=== PATIENT | male | born 1970 | race Caucasian/White ===

== ENCOUNTER 2024-02-05 15:35 | Inpatient (IN) ==
[2024-02-05] MEDS: morphine 2 MG/ML VIAL IV ONE (16:08)
[2024-02-05] MEDS: HYDROcodone/APAP 5/325MG TABLET PO ONE ×2 (16:17→18:33)
[2024-02-05 16:52] LABS: Basophils # (Auto) 0.03 K/mcL (0.00-0.30); Basophils % (Auto) 0.7 % (0.0-2.0); Eosinophils # (Auto) 0.11 K/mcL (0.00-0.70); Eosinophils % (Auto) 2.5 % (0.0-7.0); Hematocrit 30.1 % (40.1-51.0); Hemoglobin 10.1 g/dL (13.7-17.5); Lymphocytes # (Auto) 0.69 K/mcL (1.50-4.80); Lymphocytes % (Auto) 15.5 % (15.5-49.0); Mean Cell Volume 96.8 fL (80.0-100.0); Mean Corpuscular HGB Conc 33.6 g/dL (31.0-36.0); Monocytes # (Auto) 0.47 K/mcL (0.10-0.90); Monocytes % (Auto) 10.6 % (1.0-12.0); Platelet Count 303 K/mcL (140-440); RBC 3.11 M/mcL (4.63-6.08); Red Cell Distribution Width 12.6 % (11.5-14.5); WBC 4.4 K/mcL (4.5-11.0)
[2024-02-05 17:14] LABS: ALT/SGPT 21 U/L (<40); AST/SGOT 15 U/L (<40); Albumin 3.7 gm/dL (3.2-5.2); Albumin/Globulin Ratio 1.7 (1.0-2.3); Alkaline Phosphatase 107 U/L (39-117); Bilirubin,Total < 0.2 mg/dL (0.1-1.0); Blood Urea Nitrogen 28 mg/dL (6-20); Calcium 8.6 mg/dL (8.6-10.4); Carbon Dioxide 25 mmol/L (22-30); Chloride 97 mmol/L (96-108); Globulin 2.2 gm/dL (2.2-3.7); Glomerular Filtration Rate 101; Glucose 503 mg/dL (70-105); Potassium 4.4 mmol/L (3.3-5.1); Sodium 133 mmol/L (133-145)
[2024-02-05 17:22] LABS: Partial Thromboplastin Time 30.3 sec (20.0-37.0)
[2024-02-05] MEDS ORDERED: INSULIN REGULAR, HUMAN 50 UNIT in 0.9 % SODIUM CHLORIDE 99.5 ML IV SCH (17:30)
[2024-02-05] MEDS: INSULIN REGULAR, HUMAN 1 UNIT/0.01 ML UNIT SQ ONE (17:31)
[2024-02-05] MEDS: 0.9 % SODIUM CHLORIDE 1,000 ML IV ONE (17:31)
[2024-02-05 19:00] LABS: ABG Methemoglobin 0.3 % (0.4-1.5); Total Hemoglobin 10.3 gm/Dl (13.5-16.5); VBG Base Excess -2 (-2-3); VBG HCO3 23.2 mmol/L (24.0-28.0); VBG Oxygen Saturation 62.6 % (40.0-70.0); VBG PCO2 39.2 mmHg (41.0-51.0); VBG PH 7.39 U (7.32-7.42); VBG PO2 34.4 mmHg (25.0-40.0); VBG Total CO2 24.4 mmol/L (25.0-29.0)
[2024-02-05] MEDS: LACTATED RINGERS 1,000 ML IV SCH (20:02)
[2024-02-05] MEDS ORDERED: NICOTINE POLACRILEX 2 MG GUM CHEW/PARK PRN (21:16)
[2024-02-05] MEDS ORDERED: ACETAMINOPHEN 325 MG TABLET PO PRN (21:29)
[2024-02-05] MEDS ORDERED: SENNOSIDES 1 TABLET PO PRN (21:29)
[2024-02-05] MEDS ORDERED: ONDANSETRON 4 MG/2 ML VIAL IV PRN (21:29)
[2024-02-05] MEDS ORDERED: DEXTROSE 31 GM ORAL.SUSP PO PRN (21:29)
[2024-02-05] MEDS ORDERED: DEXTROSE 50% 50 ML VIAL IV PRN (21:29)
[2024-02-05] MEDS ORDERED: IBUPROFEN 400 MG TABLET PO PRN (21:34)
[2024-02-05] MEDS: NICOTINE 21 MG PATCH TOPICAL SCH (21:58)
[2024-02-05] MEDS: oxyCODONE IR 5 MG TABLET PO PRN (21:59)
[2024-02-05] MEDS: 0.9 % SODIUM CHLORIDE 10 ML SYRINGE IV SCH (21:59)
[2024-02-05] MEDS: INSULIN LISPRO 1 UNIT/0.01 ML UNIT SQ SCH (22:08)
[2024-02-05] MEDS: INSULIN GLARGINE, HUMAN 1 UNIT/0.01 ML SQ SCH (22:09)
[2024-02-05] MEDS: ENOXAPARIN 40 MG/0.4 ML SYRINGE SQ SCH (22:11)
[2024-02-06] MEDS: ACETAMINOPHEN 500 MG TABLET PO PRN (02:33)
[2024-02-06 06:50] LABS: Basophils # (Auto) 0.03 K/mcL (0.00-0.30); Basophils % (Auto) 0.6 % (0.0-2.0); Eosinophils # (Auto) 0.12 K/mcL (0.00-0.70); Eosinophils % (Auto) 2.2 % (0.0-7.0); Hematocrit 27.9 % (40.1-51.0); Lymphocytes # (Auto) 0.95 K/mcL (1.50-4.80); Lymphocytes % (Auto) 17.7 % (15.5-49.0); Mean Cell Volume 100.4 fL (80.0-100.0); Mean Corpuscular HGB Conc 32.3 g/dL (31.0-36.0); Monocytes # (Auto) 0.58 K/mcL (0.10-0.90); Monocytes % (Auto) 10.8 % (1.0-12.0); Neutrophils % (Auto) 68.3 % (38.0-78.0); Platelet Count 255 K/mcL (140-440); RBC 2.78 M/mcL (4.63-6.08); Red Cell Distribution Width 12.8 % (11.5-14.5); WBC 5.4 K/mcL (4.5-11.0)
[2024-02-06 07:11] LABS: ALT/SGPT 15 U/L (<40); AST/SGOT 13 U/L (<40); Albumin 3.1 gm/dL (3.2-5.2); Albumin/Globulin Ratio 1.7 (1.0-2.3); Alkaline Phosphatase 82 U/L (39-117); Bilirubin,Direct < 0.2 mg/dL (0-0.3); Bilirubin,Total < 0.2 mg/dL (0.1-1.0); Blood Urea Nitrogen 15 mg/dL (6-20); Calcium 7.8 mg/dL (8.6-10.4); Carbon Dioxide 24 mmol/L (22-30); Chloride 106 mmol/L (96-108); Globulin 1.8 gm/dL (2.2-3.7); Glomerular Filtration Rate 123; Glucose 169 mg/dL (70-105); Lactate Dehydrogenase 203 U/L (135-225); Phosphorous 3.7 mg/dL (2.5-4.5); Sodium 138 mmol/L (133-145); Triglycerides 69 mg/dL (<150); Uric Acid 2.7 mg/dL (2.5-8.0)
[2024-02-06] MEDS: INSULIN LISPRO 1 UNIT/0.01 ML UNIT SQ SCH (07:26)
[2024-02-06] MEDS ORDERED: PROPOFOL 200 MG/20 ML VIAL IV ONE (07:49)
[2024-02-06] MEDS ORDERED: LIDOCAINE 2% PF 5 ML VIAL ONE (07:49)
[2024-02-06] MEDS ORDERED: KETAMINE 50 MG/ML Syringe IV ONE (07:49)
[2024-02-06] MEDS ORDERED: ONDANSETRON 4 MG/2 ML VIAL ONE (07:49)
[2024-02-06] MEDS ORDERED: MAGNESIUM SULFATE 2 GM/50 ML BAG IV ONE (07:49)
[2024-02-06] MEDS ORDERED: DEXAMETHASONE 10 MG/ML VIAL ONE (07:49)
[2024-02-06] MEDS: ceFAZolin 2 GM in DEXTROSE 5% IN WATER 50 ML IV SCH (08:15)
[2024-02-06] MEDS ORDERED: TRANEXAMIC ACID 1,000 MG/10 ML VIAL ONE (08:18)
[2024-02-06] MEDS ORDERED: diphenhydrAMINE 50 MG/ML VIAL IV PRN (08:36)
[2024-02-06] MEDS ORDERED: MEPERIDINE 25 MG/ML VIAL IV PRN (08:36)
[2024-02-06] MEDS ORDERED: NALOXONE HCL 0.4 MG/ML VIAL IV PRN (08:36)
[2024-02-06] MEDS ORDERED: LACTATED RINGERS 250 ML IV PRN (08:36)
[2024-02-06] MEDS ORDERED: ONDANSETRON 4 MG/2 ML VIAL IV PRN (08:36)
[2024-02-06] MEDS ORDERED: IPRATROPIUM/ALBUTEROL 3 ML AMPUL.NEB NEB PRN (08:36)
[2024-02-06] MEDS: ACETAMINOPHEN 1,000 MG/100 ML BAG IV ONE (09:16)
[2024-02-06] MEDS: METHOCARBAMOL 1,000 MG/10 ML VIAL IV PRN (09:16)
[2024-02-06] MEDS ORDERED: BENZOCAINE/MENTHOL 1 LOZENGE PO PRN (09:17)
[2024-02-06] MEDS: fentaNYL 100 MCG/2 ML VIAL IV PRN (09:25)
[2024-02-06] MEDS ORDERED: ceFAZolin 2 GM in DEXTROSE 5% IN WATER 50 ML IV SCH (09:30)
[2024-02-06] MEDS: HYDROmorphone 0.5 MG/0.5 ML SYRINGE IV PRN (09:31)
[2024-02-06] MEDS: TRANEXAMIC ACID 1,000 MG/10 ML VIAL IV ONE (09:43)
[2024-02-06] MEDS: LACTATED RINGERS 1,000 ML IV SCH ×2 (10:32→10:36)
[2024-02-06] MEDS: METHOCARBAMOL 500 MG TABLET PO PRN (14:03)
[2024-02-06] MEDS: HYDROcodone/APAP 5/325MG TABLET PO PRN (14:03)
[2024-02-06] MEDS: morphine 4 MG/ML VIAL IV PRN (16:56)
[2024-02-06] MEDS: ceFAZolin 1 GM VIAL IV SCH (16:58)
[2024-02-06] MEDS: ASPIRIN 81 MG TAB.CHEW CHEWED SCH (22:06)
[2024-02-07 06:46] LABS: Basophils # (Auto) 0.03 K/mcL (0.00-0.30); Basophils % (Auto) 0.5 % (0.0-2.0); Eosinophils # (Auto) 0.09 K/mcL (0.00-0.70); Eosinophils % (Auto) 1.5 % (0.0-7.0); Hematocrit 29.8 % (40.1-51.0); Hemoglobin 9.8 g/dL (13.7-17.5); Lymphocytes # (Auto) 1.28 K/mcL (1.50-4.80); Lymphocytes % (Auto) 20.8 % (15.5-49.0); Mean Cell Volume 99.3 fL (80.0-100.0); Mean Corpuscular HGB Conc 32.9 g/dL (31.0-36.0); Mean Platelet Volume 8.8 fL (8.8-12.5); Monocytes # (Auto) 0.61 K/mcL (0.10-0.90); Monocytes % (Auto) 9.9 % (1.0-12.0); Platelet Count 286 K/mcL (140-440); Red Cell Distribution Width 12.9 % (11.5-14.5); WBC 6.2 K/mcL (4.5-11.0)
[2024-02-07 07:00] LABS: ALT/SGPT 13 U/L (<40); AST/SGOT 15 U/L (<40); Albumin 3.2 gm/dL (3.2-5.2); Albumin/Globulin Ratio 1.5 (1.0-2.3); Alkaline Phosphatase 84 U/L (39-117); Bilirubin,Direct < 0.2 mg/dL (0-0.3); Bilirubin,Total < 0.2 mg/dL (0.1-1.0); Blood Urea Nitrogen 12 mg/dL (6-20); Calcium 8.1 mg/dL (8.6-10.4); Carbon Dioxide 28 mmol/L (22-30); Chloride 105 mmol/L (96-108); Globulin 2.1 gm/dL (2.2-3.7); Glomerular Filtration Rate 114; Glucose 104 mg/dL (70-105); Lactate Dehydrogenase 180 U/L (135-225); Phosphorous 4.5 mg/dL (2.5-4.5); Potassium 4.5 mmol/L (3.3-5.1); Sodium 140 mmol/L (133-145); Triglycerides 80 mg/dL (<150); Uric Acid 2.8 mg/dL (2.5-8.0)
[2024-02-07] MEDS: IBUPROFEN 800 MG TABLET PO PRN (07:07)
[2024-02-07] MEDS ORDERED: POLYETHYLENE GLYCOL 3350 17 GM PACKET PO PRN (07:47)
[2024-02-07] MEDS: POLYETHYLENE GLYCOL 3350 17 GM PACKET PO PRN (08:15)
== END 2024-02-07 12:00 | disposition home health service (06) | DRG 482 ==
LOC: ED 15:35 → MEDSUR 21:18
PROVIDERS: ADMIT Student in an Organized Health Care Education/Training Program; ATTEND Student in an Organized Health Care Education/Training Program
PROC: ORIFHIP (2024-02-06 08:14)